=== PATIENT | female | born 1950 | race Caucasian/White ===

== ENCOUNTER 2017-01-21 11:34 | Emergency (ER) | payer MEDICARE, BC ==
[~2017-01-21 11:34] MED LIST: ASPIRIN EC81 M1 PO; AXID300 MG PO; BENTYL10 M1 PO; CALCIUM500 MG PO; CERTAGEN PO; CRESTOR10 MG PO; ECHINACEA80 MG PO; FISH OIL 1,2001 CAP PO; LATANOPROST2.5 ML OU; LIPITOR PO; LISINOPRIL PO; LISINOPRIL30 MG PO; LORTAB 7.5-3251 EACH PO; MULTIPLE VITAM1 EAC1; MULTIVITAMIN1 UDCAP PO; OMEPRAZOLE40 MG; PHENERGAN25 M1 PO; PROAIR HFA8.5 GM INH; SUPER B COMPLE150 MG PO; TOPROL XL PO; TRAVATAN5 ML OU; TUMS500 MG PO; TYLENOL325 M1 PO; VITAMIN D35000 UNI1 PO
[2017-05-03] MEDS ORDERED: VITAMIN B122500 MCG (16:24)
[2017-05-03] MEDS ORDERED: VITAMIN D32000 UNI1 PO (16:24)
== END 2017-01-21 12:30 | disposition home or self-care (01) ==
LOC: CED 11:34
DX: L23.7 Allergic contact dermatitis due to plants, except food (principal); I10 Essential (primary) hypertension; E78.5 Hyperlipidemia, unspecified; Z90.89 Acquired absence of other organs; Z90.710 Acquired absence of both cervix and uterus
CPT/HCPCS: 96374; 96375; 99284; J1200; J2930

== ENCOUNTER 2017-01-26 14:54 | Emergency (ER) | payer MEDICARE, BC ==
[2017-05-03] MEDS ORDERED: VITAMIN D32000 UNI1 PO (16:24)
[2017-05-03] MEDS ORDERED: VITAMIN B122500 MCG (16:24)
== END 2017-01-26 16:05 | disposition home or self-care (01) ==
LOC: CED 14:54 → CFTX 14:54 → CED 15:45
DX: R21 Rash and other nonspecific skin eruption (principal); I10 Essential (primary) hypertension; E78.5 Hyperlipidemia, unspecified; Z90.49 Acquired absence of other specified parts of digestive tract; Z90.710 Acquired absence of both cervix and uterus; Z88.0 Allergy status to penicillin; Z88.2 Allergy status to sulfonamides; Z79.82 Long term (current) use of aspirin; Z79.899 Other long term (current) drug therapy
CPT/HCPCS: 99282

== ENCOUNTER → 2017-03-24 | Outpatient (CLI) | payer MEDICARE, BC ==
[~2017-03-24] MED LIST changes: +VITAMIN B122500 MCG; +VITAMIN D32000 UNI1 PO
--- NOTE | ~2017-03-24 | BD1 ---
[facility] A Service of [facility] RADIOLOGY TEXT RESULTS PATIENT: LISA RENE LOCATION: [facility] : 50 UNIT #: [id number] AGE: [address]: Kaykay Benoit MD SEX: F ORDER DR: [id number] [facility] [address]. [place], [place] [address] [id number] O MR#: [id number] Acc #: [id number] NAME: LISA RENE : 1950 SEX: F STUDY DATE/TIME: 03/24/2017 10:28 UNIT: [facility] ROOM: STUDY DESCRIPTION: BD Dexa Bone Dens 1+ Site Attending Physician: Kaykay Benoit M.D. Ordering Physician: Kaykay Benoit M.D. Primary Care Physician: Kaykay Benoit M.D. MEDICAL IMAGING REPORT This report is preliminary unless electronic signature is present EXAM DXA scan 03/24/2017 HISTORY Status post menopause with no hormone replacement therapy. Osteopenia. Hysterectomy at age 31. Family history of breast carcinoma. Arthritis. Hypertension with blood pressure medication. FINDINGS Bone mineral density in the lumbar spine from L1-L4 is 0.919 g/cm2, which is 1.2 standard deviations below the mean when compared to the young adult reference population, which is characteristic of osteopenia. This is 0.7 standard deviation above the mean when compared to the age-matched population. Bone mineral density in the left femoral neck was 0.642 g/cm2, which is 1.9 standard deviations below the mean when compared to the young adult reference population, which is characteristic of osteopenia. This is 0.3 standard deviation below the mean when compared to the age-matched population. IMPRESSION Bone mineral density in the lumbar spine and left hip characteristic of osteopenia. Dictated by... Sundeep Rene M.D. THIS IS AN ELECTRONICALLY VERIFIED REPORT Sundeep Rene M.D. at 03/25/2017 5:35 PM [facility] A Service of [facility] RADIOLOGY TEXT RESULTS PATIENT: LISA RENE LOCATION: [facility] : 50 UNIT #: [id number] AGE: [address]: Kaykay Benoit MD SEX: F ORDER DR: TD: 03/25/2017 12:23 JOB #: [id number] MEDICAL IMAGING REPORT Page 1 of 1 COPY
--- NOTE | ~2017-03-24 | MY29 ---
[facility] A Service of [facility] RADIOLOGY TEXT RESULTS PATIENT: LISA HARPER LOCATION: [facility] : 50 UNIT #: [id number] AGE: [address]: Kaykay Benoit MD SEX: F ORDER DR: [id number] [place] [id number] [facility]. [place], [place] [address] [id number] O MR#: [id number] Acc #: [id number] NAME: LISA HARPER : 1950 SEX: F STUDY DATE/TIME: 03/24/2017 10:10 UNIT: [facility] ROOM: STUDY DESCRIPTION: MY KAROL SCREENING W/ CAD BILAT Attending Physician: Kaykay Benoit M.D. Ordering Physician: Kaykay Benoit M.D. Primary Care Physician: Kaykay Benoit M.D. MEDICAL IMAGING REPORT This report is preliminary unless electronic signature is present EXAM Digital screening mammogram 03/24/2017 HISTORY 66-year-old woman positive family history, aunt postmenopausal. Annual screen. COMPARISON Mammograms date to 03/10/2006 with most recent 12/12/2015. FINDINGS Digital imaging of each breast was completed utilizing screening protocol. Review includes FDA-approved CAD device. Breast parenchyma is predominantly fatty replaced. Slightly dominant parenchymal nodularity projects subareolar location right breast. I see no suspicious mass characteristics. There are no suspicious microcalcifications and no architectural deformity. IMPRESSION Negative stable mammogram. Annual screening recommended. Patients over the age of 40 are entered into a reminder system with target due date for the next mammogram. A result letter will also be sent to the patient. BIRADS: 1 Negative Dictated by... Randy Conteh M.D. THIS IS AN ELECTRONICALLY VERIFIED REPORT [facility] A Service [facility] RADIOLOGY TEXT RESULTS PATIENT: LISA HARPER LOCATION: [facility] : 50 UNIT #: [id number] AGE: [address]: Kaykay Benoit MD SEX: F ORDER DR: Randy Conteh M.D. at 03/24/2017 2:40 PM REEMA/tc TD: 03/24/2017 12:50 JOB #: [id number] MEDICAL IMAGING REPORT Page 1 of 1 COPY
== END | disposition home or self-care (01) ==
LOC: CWCC 09:30
DX: Z12.31 Encounter for screening mammogram for malignant neoplasm of breast (principal); M81.0 Age-related osteoporosis without current pathological fracture; Z80.3 Family history of malignant neoplasm of breast; M85.89 Other specified disorders of bone density and structure, multiple sites
CPT/HCPCS: 77080; G0202

== ENCOUNTER → 2017-05-04 | Day surgery (SDC) | payer MEDICARE, BC ==
--- NOTE | ~2017-05-04 | OR ---
Unit #: [id number] #: [id number] Patient: LISA HARPER [id number] [address] [place], [place] [address] [id number] O MR#: [id number] NAME: LISA HARPER ROOM: Date of Procedure: 05/04/2017 Admission Date: 05/04/2017 Surgeon: Colton Barney M.D. : 1950 Attending Physician: Colton Barney M.D. Primary Care Physician: Kaykay Benoit M.D. OPERATIVE REPORT JOB NOTE: VERIFY MRN PREOPERATIVE DIAGNOSIS Screening colonoscopy. POSTOPERATIVE DIAGNOSIS Screening colonoscopy. PROCEDURE PERFORMED Colonoscopy to terminal ileum. ANESTHESIA Monitored anesthesia care. FINDINGS The patient had normal colonoscopy to terminal ileum except for mild internal hemorrhoids. SPECIMENS None. COMPLICATIONS None apparent. CONDITION The patient tolerated the procedure well. INDICATIONS FOR PROCEDURE The patient is a 66-year-old white female, who presents at this time for screening colonoscopy. DESCRIPTION OF PROCEDURE After obtaining informed consent, the patient was brought to the endoscopy suite and after adequate monitored anesthesia care, had the colonoscope placed through the anus and slowly advanced to the level of the cecum without difficulty with lumen always in view. The ileocecal valve was normal and we were able to pass through the ileocecal valve into the terminal ileum. The terminal ileum was normal as was the ileocecal valve and cecum. The ascending colon was normal as was the hepatic flexure, transverse colon, splenic flexure, descending colon, sigmoid colon, and rectum. On retroflexing in the rectum to the anorectal junction, the patient was found to have some mild internal hemorrhoids. The scope was Unit #: [id number] #: [id number] Patient: LISA HARPER removed without difficulty. The patient tolerated the procedure well and went from the endoscopy suite to the recovery area in stable condition. RECOMMENDATIONS High-fiber diet, lots of liquids, tucks or wipes p.r.n. Follow up as needed. Dictated by... Kaushal Stevenson/obed TD: 05/04/2017 11:36 JOB #: [id number] CC: [facility] OPERATIVE REPORT Page 1 of 1 X Colton Barney MD PROCEDURE OPERATIVE NOTE
== END | disposition home or self-care (01) ==
LOC: COPS 06:20
DX: Z12.11 Encounter for screening for malignant neoplasm of colon (principal); K64.8 Other hemorrhoids; J45.909 Unspecified asthma, uncomplicated; I48.91 Unspecified atrial fibrillation; I10 Essential (primary) hypertension; M19.90 Unspecified osteoarthritis, unspecified site; Z85.038 Personal history of other malignant neoplasm of large intestine; Z87.442 Personal history of urinary calculi; Z87.81 Personal history of (healed) traumatic fracture; Z88.0 Allergy status to penicillin; Z88.2 Allergy status to sulfonamides; Z88.1 Allergy status to other antibiotic agents; Z90.49 Acquired absence of other specified parts of digestive tract; Z90.710 Acquired absence of both cervix and uterus; Z98.890 Other specified postprocedural states; Z79.82 Long term (current) use of aspirin; Z79.899 Other long term (current) drug therapy
CPT/HCPCS: J2250